=== PATIENT | male | born 1965 | race African-American/Black ===

== ENCOUNTER 2016-08-03 11:02 | Inpatient (IN) | payer OTHER ==
[2016-08-03 12:57] VITALS: BMI 20.3
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
[2016-08-03] MEDS ORDERED: P-EPHED 60MG/TRIPROLIDI 2.5MG TABLET PO PRN (15:49)
[2016-08-03] MEDS ORDERED: MENTHOL/PHENOL 1 EACH UD MM PRN (15:49)
[2016-08-03] MEDS ORDERED: MAGNESIUM CITRATE 300 ML BOTTLE PO PRN (15:49)
[2016-08-03] MEDS ORDERED: NICOTINE 10 MG CARTRIDGE (INHALER) IH PRN (15:49)
[2016-08-03] MEDS ORDERED: hydrOXYzine PAMOATE 25 MG CAPSULE (FP) PO PRN (15:49)
[2016-08-03] MEDS ORDERED: guaiFENesin/D-METHORPHAN HB 10 ML UNIT-DOSE CUPS PO PRN (15:49)
[2016-08-03] MEDS ORDERED: IBUPROFEN 400 MG TABLET (FP) PO PRN (15:49)
[2016-08-03] MEDS ORDERED: MAG HYDROX/AL HYDROX/SIMETH 30 ML UNIT-DOSE CUP PO PRN (15:49)
[2016-08-03] MEDS ORDERED: LOPERAMIDE HCL 2 MG CAPSULE PO PRN (15:49)
[2016-08-03] MEDS ORDERED: MAGNESIUM HYDROX 2400MG/30ML ORAL SUSPENSION 30 ML CUP PO PRN (15:49)
[2016-08-03] MEDS ORDERED: METHADONE HCL 10 MG TABLET (FOR DETOX USE ONLY) PO ONE ×2 (17:00→23:00)
[2016-08-03] MEDS: NICOTINE 21 MG/24 HOURS TOPICAL PATCH TD SCH (17:53)
[2016-08-03] MEDS: diazePAM 5 MG TABLET PO PRN (17:53)
[2016-08-03] MEDS ORDERED: diphenhydrAMINE HCL 50 MG CAPSULE PO PRN (22:00)
[2016-08-03] MEDS: THIAMINE HCL 100 MG TABLET (FP) PO SCH (22:26)
[2016-08-04 00:15] LABS: URINE APPEARANCE CLEAR; URINE BILIRUBIN NEGATIVE (NEGATIVE); URINE COLOR YELLOW; URINE GLUCOSE (UA) NEGATIVE (NEGATIVE); URINE KETONE NEGATIVE (NEGATIVE); URINE LEUK ESTERASE NEGATIVE (NEGATIVE); URINE NITRITE NEGATIVE (NEGATIVE); URINE UROBILINOGEN NEGATIVE E.U./dl (0.2-1.0)
[2016-08-04 01:23] LABS: URINE BLOOD 1+ (NEGATIVE); URINE PROTEIN 1+ (NEGATIVE)
[2016-08-04 01:40] LABS: URINE MUCUS RARE; URINE RBC 5 /hpf (0-3)
[2016-08-04] MEDS: diazePAM 5 MG TABLET PO PRN (05:21)
[2016-08-04] MEDS ORDERED: ALBUTEROL SO4 6.7 GM HFA INHALER IH ONE (07:21)
[2016-08-04] MEDS: ALBUTEROL SO4 6.7 GM HFA INHALER IH PRN ×2 (07:24→19:04)
[2016-08-04] MEDS ORDERED: METHADONE HCL 10 MG TABLET (FOR DETOX USE ONLY) PO ONE (10:00)
[2016-08-04] MEDS: PRENATAL VITAMINS W/ FOLIC ACID TABLET (FP) PO SCH (10:34)
[2016-08-04] MEDS: NICOTINE 21 MG/24 HOURS TOPICAL PATCH TD SCH (10:34)
[2016-08-04 10:39] LABS: MCH 30.4 pg (25.7-33.7); MCHC 33.5 g/dl (32.0-35.9); MEAN CELL VOLUME 90.8 fl (80-96); MEAN PLT VOLUME 8.7 fl (7.5-11.1); PLATELET COUNT 212 K/MM3 (134-434); WHITE BLOOD COUNT 2.8 K/mm3 (4.0-10.0)
[2016-08-04 11:13] LABS: ALK PHOS 71 U/L (45-117); ANION GAP 7 (8-16); BILIRUBIN,TOTAL 0.4 mg/dL (0.2-1.0); CALCIUM 7.9 mg/dL (8.5-10.1); CO2 27 mmol/L (21-32); CREATININE 1.2 mg/dL (0.7-1.3); GLUCOSE,RANDOM 133 mg/dL (74-106); SGOT/AST 38 U/L (15-37); SGPT/ALT 26 U/L (12-78); TOT PROT 7.7 g/dl (6.4-8.2)
--- NOTE | 2016-08-04 15:32 | PN ---
BHS COWS - Scale Resting Pulse: 1= [place] 81-100 Sweatin=Flushed/Facial Moisture Restless Observation: 1= Difficult to Sit Still Pupil Size: 0= Normal to Room Light Bone or Joint Aches: 2= Severe Diffuse Aches Runny Nose/ Eye Tearin= None GI Upset > 30mins: 2= Nausea/Diarrhea Tremor Observation of Outstretched Hands: 2= Slight Tremor Visible Yawning Observation: 1= 1-2x During Session Anxiety or Irritability: 2=Irritable/Anxious Goose Flesh Skin: 3=Piloerection COWS Score: 16 BHS Progress Note (SOAP) Subjective: Stomach Cramping, Tremors, Interrupted sleep, Diarrhea, Body Aches, Sweating. Objective: PT. A & O X 3, OBSERVED AMBULATING ON UNIT. 08/04/16 15:31 Vital Signs Temperature 96.4 F L 08/04/16 13:30 Pulse Rate 99 H 08/04/16 13:30 Respiratory Rate 16 08/04/16 13:30 Blood Pressure 133/84 08/04/16 13:30 O2 Sat by Pulse Oximetry (%) Laboratory Last Values WBC 2.8 K/mm3 (4.0-10.0) L D 08/04/16 06:30 RBC 3.41 M/mm3 (4.00-5.60) L 08/04/16 06:30 Hgb 10.4 GM/dL (11.7-16.9) L 08/04/16 06:30 Hct 30.9 % (35.4-49) L 08/04/16 06:30 MCV 90.8 fl (80-96) 08/04/16 06:30 MCHC 33.5 g/dl (32.0-35.9) 08/04/16 06:30 RDW 14.0 % (11.9-15.9) 08/04/16 06:30 Plt Count 212 K/MM3 (134-434) 08/04/16 06:30 MPV 8.7 fl (7.5-11.1) D 08/04/16 06:30 Sodium 137 mmol/L (136-145) 08/04/16 06:30 Potassium 3.8 mmol/L (3.5-5.1) 08/04/16 06:30 Chloride 103 mmol/L (98-107) 08/04/16 06:30 Carbon Dioxide 27 mmol/L (21-32) D 08/04/16 06:30 Anion Gap 7 (8-16) L 08/04/16 06:30 BUN 11 mg/dL (7-18) D 08/04/16 06:30 Creatinine 1.2 mg/dL (0.7-1.3) D 08/04/16 06:30 Creat Clearance w eGFR > 60 (>60) 08/04/16 06:30 Random Glucose 133 mg/dL (74-106) H 08/04/16 06:30 Calcium 7.9 mg/dL (8.5-10.1) L 08/04/16 06:30 Total Bilirubin 0.4 mg/dL (0.2-1.0) D 08/04/16 06:30 AST 38 U/L (15-37) H D 08/04/16 06:30 ALT 26 U/L (12-78) D 08/04/16 06:30 Alkaline Phosphatase 71 U/L (45-117) 08/04/16 06:30 Total Protein 7.7 g/dl (6.4-8.2) 08/04/16 06:30 Albumin 3.0 g/dl (3.4-5.0) L 08/04/16 06:30 Urine Color Yellow 08/03/16 21:16 Urine Appearance Clear 08/03/16 21:16 Urine pH 6.0 (5.0-8.0) 08/03/16 21:16 Ur Specific [place] 1.020 (1.001-1.035) 08/03/16 21:16 Urine Protein 1+ (NEGATIVE) H 08/03/16 21:16 Urine Glucose (UA) Negative (NEGATIVE) 08/03/16 21:16 Urine Ketones Negative (NEGATIVE) 08/03/16 21:16 Urine Blood 1+ (NEGATIVE) H 08/03/16 21:16 Urine Nitrite Negative (NEGATIVE) 08/03/16 21:16 Urine Bilirubin Negative (NEGATIVE) 08/03/16 21:16 Urine Urobilinogen Negative E.U./dl (0.2-1.0) 08/03/16 21:16 Ur Leukocyte Esterase Negative (NEGATIVE) 08/03/16 21:16 Urine RBC 5 /hpf (0-3) 08/03/16 21:16 Urine WBC None /hpf (3-5) 08/03/16 21:16 Ur Epithelial Cells Rare /hpf (FEW) 08/03/16 21:16 Urine Mucus Rare 08/03/16 21:16 RPR Titer Nonreactive (NONREACTIVE) 08/04/16 06:30 LABS NOTED. Assessment: 08/04/16 15:32 WITHDRAWAL SYMPTOMS. Plan: CONTINUE DETOX. REPEAT CBC TOMORROW. PT. RECEIVING MVI AND THIAMINE SUPPLEMENTATION WHILE UNDERGOING DETOX. ADVISED PATIENT TO FOLLOW-UP WITH [facility] / REHAB MEDICAL PROVIDER AFTER DISCHARGE FROM DETOX FOR GENERAL MEDICAL ASSESSMENT AND FOR ABNORMAL ADMISSION LAB VALUES.
[2016-08-04] MEDS: ACETAMINOPHEN 325 MG TABLET (FP) PO PRN (22:29)
[2016-08-04] MEDS: THIAMINE HCL 100 MG TABLET (FP) PO SCH (22:29)
[2016-08-05] MEDS ORDERED: METHADONE HCL 5 MG TABLET (FOR DETOX USE ONLY) PO ONE (10:00)
[2016-08-05] MEDS: NICOTINE 21 MG/24 HOURS TOPICAL PATCH TD SCH (10:19)
[2016-08-05] MEDS: PRENATAL VITAMINS W/ FOLIC ACID TABLET (FP) PO SCH (10:19)
--- NOTE | 2016-08-05 10:24 | PN ---
S COWS - Scale Resting Pulse: 1= [place] 81-100 Sweatin= Chills/Flushing Restless Observation: 1= Difficult to Sit Still Pupil Size: 1= Pupils >than Normal Bone or Joint Aches: 2= Severe Diffuse Aches Runny Nose/ Eye Tearin= Nasal Congestion GI Upset > 30mins: 2= Nausea/Diarrhea Tremor Observation of Outstretched Hands: 2= Slight Tremor Visible Yawning Observation: 1= 1-2x During Session Anxiety or Irritability: 2=Irritable/Anxious Goose Flesh Skin: 3=Piloerection COWS Score: 17 BHS Progress Note (SOAP) Subjective: nausea, sweats, interrupted sleep, anxiety, pain left thumbnail can not remember injuring it Objective: 08/05/16 10:21 Laboratory Tests 08/03/16 08/04/16 08/04/16 21:16 06:30 06:30 WBC 2.8 L D RBC 3.41 L Hgb 10.4 L Hct 30.9 L MCV 90.8 MCHC 33.5 RDW 14.0 Plt Count 212 MPV 8.7 D Sodium 137 Potassium 3.8 Chloride 103 Carbon Dioxide 27 D Anion Gap 7 L BUN 11 D Creatinine 1.2 D Creat Clearance w eGFR > 60 Random Glucose 133 H Calcium 7.9 L Total Bilirubin 0.4 D AST 38 H D ALT 26 D Alkaline Phosphatase 71 Total Protein 7.7 Albumin 3.0 L Urine Color Yellow Urine Appearance Clear Urine pH 6.0 Ur Specific [place] 1.020 Urine Protein 1+ H Urine Glucose (UA) Negative Urine Ketones Negative Urine Blood 1+ H Urine Nitrite Negative Urine Bilirubin Negative Urine Urobilinogen Negative Ur Leukocyte Esterase Negative Urine RBC 5 Urine WBC None Ur Epithelial Cells Rare Urine Mucus Rare RPR Titer 08/04/16 06:30 WBC RBC Hgb Hct MCV MCHC RDW Plt Count MPV Sodium Potassium Chloride Carbon Dioxide Anion Gap BUN Creatinine Creat Clearance w eGFR Random Glucose Calcium Total Bilirubin AST ALT Alkaline Phosphatase Total Protein Albumin Urine Color Urine Appearance Urine pH Ur Specific [place] Urine Protein Urine Glucose (UA) Urine Ketones Urine Blood Urine Nitrite Urine Bilirubin Urine Urobilinogen Ur Leukocyte Esterase Urine RBC Urine WBC Ur Epithelial Cells Urine Mucus RPR Titer Nonreactive anemia, hypoalbuminemia, abnormal u/a possible infection left thumbnail, no erythyma or pus noted, nail and skin broken Assessment: 08/05/16 10:22 withdraal sx, malnutrition, painful injury thumb with possible infection Plan: cont detox, pain meds, fluids, encourage ambulation, dietary supplements, iron, repeat u/a
[2016-08-05 10:46] LABS: MCH 30.1 pg (25.7-33.7); MCHC 32.9 g/dl (32.0-35.9); MEAN CELL VOLUME 91.7 fl (80-96); MEAN PLT VOLUME 7.8 fl (7.5-11.1); PLATELET COUNT 203 K/MM3 (134-434); RDW 14.4 % (11.9-15.9); WHITE BLOOD COUNT 2.8 K/mm3 (4.0-10.0)
[2016-08-05 11:50] LABS: ANISOCYTOSIS 1+; HYPOCHROMIA 1+; METAMYELOCYTE 2 % (0-2); PLATELET COMMENT2 NO CLOTTING DETECTED; PLATELET ESTIMATE ADEQUATE (NORMAL); SMUDGE CELLS FEW
[2016-08-05] MEDS: FERROUS SO4 300 MG/5 ML ORAL SOLN UNIT DOSE CUPS PO SCH ×2 (12:54→22:37)
[2016-08-05] MEDS: CYCLOBENZAPRINE HCL 10 MG TABLET (FP) PO SCH ×2 (13:12→22:37)
[2016-08-05] MEDS: GABAPENTIN 100 MG CAPSULE (FP) PO SCH ×2 (13:12→22:37)
[2016-08-05 14:01] LABS: URINE APPEARANCE CLEAR; URINE BILIRUBIN NEGATIVE (NEGATIVE); URINE COLOR YELLOW; URINE GLUCOSE (UA) NEGATIVE (NEGATIVE); URINE KETONE NEGATIVE (NEGATIVE); URINE LEUK ESTERASE NEGATIVE (NEGATIVE); URINE NITRITE NEGATIVE (NEGATIVE); URINE UROBILINOGEN NEGATIVE E.U./dl (0.2-1.0)
[2016-08-05 14:03] LABS: URINE BLOOD 1+ (NEGATIVE); URINE PROTEIN 1+ (NEGATIVE)
[2016-08-05 14:16] LABS: URINE MUCUS RARE; URINE RBC 2 /hpf (0-3)
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
[2016-08-05] MEDS: ACETAMINOPHEN 325 MG TABLET (FP) PO PRN (16:53)
[2016-08-05] MEDS: THIAMINE HCL 100 MG TABLET (FP) PO SCH (22:37)
[2016-08-06] MEDS: CYCLOBENZAPRINE HCL 10 MG TABLET (FP) PO SCH ×3 (05:26→22:18)
[2016-08-06] MEDS: GABAPENTIN 100 MG CAPSULE (FP) PO SCH ×3 (05:26→22:18)
[2016-08-06] MEDS: diazePAM 5 MG TABLET PO PRN (05:28)
[2016-08-06] MEDS: ALBUTEROL SO4 6.7 GM HFA INHALER IH PRN (05:30)
[2016-08-06] MEDS: FERROUS SO4 300 MG/5 ML ORAL SOLN UNIT DOSE CUPS PO SCH ×3 (07:35→17:15)
[2016-08-06] MEDS ORDERED: METHADONE HCL 5 MG TABLET (FOR DETOX USE ONLY) PO ONE (10:00)
[2016-08-06] MEDS: ACETAMINOPHEN 325 MG TABLET (FP) PO PRN ×2 (10:17→17:16)
[2016-08-06] MEDS: PRENATAL VITAMINS W/ FOLIC ACID TABLET (FP) PO SCH (10:19)
[2016-08-06] MEDS: NICOTINE 21 MG/24 HOURS TOPICAL PATCH TD SCH (10:19)
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
[2016-08-06] MEDS: THIAMINE HCL 100 MG TABLET (FP) PO SCH (22:18)
[2016-08-07] MEDS: GABAPENTIN 100 MG CAPSULE (FP) PO SCH ×3 (05:36→22:17)
[2016-08-07] MEDS: ALBUTEROL SO4 6.7 GM HFA INHALER IH PRN (05:36)
[2016-08-07] MEDS: CYCLOBENZAPRINE HCL 10 MG TABLET (FP) PO SCH ×3 (05:36→22:17)
[2016-08-07] MEDS: FERROUS SO4 300 MG/5 ML ORAL SOLN UNIT DOSE CUPS PO SCH ×3 (07:41→17:31)
[2016-08-07] MEDS: ACETAMINOPHEN 325 MG TABLET (FP) PO PRN (08:30)
[2016-08-07] MEDS ORDERED: METHADONE HCL 10 MG TABLET (FOR DETOX USE ONLY) PO ONE (10:00)
[2016-08-07] MEDS: NICOTINE 21 MG/24 HOURS TOPICAL PATCH TD SCH (10:17)
[2016-08-07] MEDS: PRENATAL VITAMINS W/ FOLIC ACID TABLET (FP) PO SCH (10:17)
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
[2016-08-07] MEDS: THIAMINE HCL 100 MG TABLET (FP) PO SCH (22:17)
[2016-08-08] MEDS: GABAPENTIN 100 MG CAPSULE (FP) PO SCH (05:04)
[2016-08-08] MEDS: CYCLOBENZAPRINE HCL 10 MG TABLET (FP) PO SCH (05:05)
[2016-08-08] MEDS ORDERED: METHADONE HCL 5 MG TABLET (FOR DETOX USE ONLY) PO ONE (06:00)
[2016-08-08 06:28] VITALS: BP 117/72; PULSE 99; TEMP 100.7
[2016-08-08] MEDS: FERROUS SO4 300 MG/5 ML ORAL SOLN UNIT DOSE CUPS PO SCH (07:11)
--- NOTE | 2016-08-08 08:28 | DS ---
[facility] Detox Discharge Summary Admission Date: 08/03/16 Discharge Date: 08/08/16 - History Present History: Cocaine Dependence, Opioid Dependence Additional Comments: DETOX COMPLETED.ALERT O X 3. NAD. TO F/U WITH PMD/I.D CLINIC FOR MEDICAL MANAGEMENT OF COMORBID CONDITIONS. Pertinent Past History: ANEMIA ASTHMA AIDS HEP C WEIGHT LOSS - Physical Exam Results Vital Signs: Vital Signs Temperature 100.7 F H 08/08/16 06:27 Pulse Rate 99 H 08/08/16 06:27 Respiratory Rate 18 08/08/16 06:27 Blood Pressure 117/72 08/08/16 06:27 O2 Sat by Pulse Oximetry (%) Pertinent Admission Physical Exam Findings: WITHDRAWAL SX - Treatment Hospital Course: Detox Protocol Followed, Detoxed Safely, Responded well, Discharged Condition Good - Medication Discharge Medications: Ambulatory Orders Albuterol Sulfate Inhaler - [Ventolin Hfa Inhaler -] 2 inh PO Q4H PRN 08/03/16 - Diagnosis (1) AIDS (acquired immune deficiency syndrome) Status: Chronic (2) Asthma Status: Chronic Qualifiers: Asthma severity: unspecified severity Asthma complication type: uncomplicated Qualified Code(s): J45.909 - Unspecified asthma, uncomplicated (3) Nicotine dependence Status: Acute Qualifiers: Nicotine product type: cigarettes Substance use status: in withdrawal Qualified Code(s): F17.213 - Nicotine dependence, cigarettes, with withdrawal (4) Opioid dependence with withdrawal Status: Acute (5) Cocaine dependence, uncomplicated Status: Acute (6) Hepatitis C Status: Chronic Qualifiers: Viral hepatitis chronicity: chronic (7) Anemia Status: Acute Qualifiers: Anemia type: unspecified type Qualified Code(s): D64.9 - Anemia, unspecified (8) Weight loss Status: Chronic - AMA Did Patient Leave Against Medical Advice: No
== END 2016-08-08 10:26 | disposition home or self-care (01) | DRG 773 ==
LOC: YASAS 11:02 → Y3N 16:01
PROVIDERS: ADMIT Internal Medicine; ATTEND Internal Medicine
PROC: HZ2ZZZZ Detoxification Services for Substance Abuse Treatment (ICD-10-PCS; principal; 2016-08-08)
DX: F11.23 Opioid dependence with withdrawal (principal); B18.2 Chronic viral hepatitis C; B20 Human immunodeficiency virus [HIV] disease; J45.909 Unspecified asthma, uncomplicated; R63.4 Abnormal weight loss; Z68.20 Body mass index [BMI] 20.0-20.9, adult
CPT/HCPCS: 36415; 70450-TC; 71020-TC; 80053; 81003; 81015; 85025; 85027; 86593; 93005; 93010

== ENCOUNTER 2016-09-12 09:34 | Inpatient (IN) | payer OTHER ==
[2016-09-12 10:48] VITALS: BMI 20.3
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
[2016-09-12] MEDS ORDERED: MAGNESIUM HYDROX 2400MG/30ML ORAL SUSPENSION 30 ML CUP PO PRN (14:06)
[2016-09-12] MEDS ORDERED: LOPERAMIDE HCL 2 MG CAPSULE PO PRN (14:06)
[2016-09-12] MEDS ORDERED: hydrOXYzine PAMOATE 50 MG CAPSULE (FP) PO PRN (14:06)
[2016-09-12] MEDS ORDERED: guaiFENesin/D-METHORPHAN HB 10 ML UNIT-DOSE CUPS PO PRN (14:06)
[2016-09-12] MEDS ORDERED: P-EPHED 60MG/TRIPROLIDI 2.5MG TABLET PO PRN (14:06)
[2016-09-12] MEDS ORDERED: MENTHOL/PHENOL 1 EACH UD MM PRN (14:06)
[2016-09-12] MEDS ORDERED: MAG HYDROX/AL HYDROX/SIMETH 30 ML UNIT-DOSE CUP PO PRN (14:06)
[2016-09-12] MEDS ORDERED: NICOTINE POLACRILEX 4 MG GUM BUC PRN (14:06)
[2016-09-12] MEDS ORDERED: MAGNESIUM CITRATE 300 ML BOTTLE PO PRN (14:06)
[2016-09-12] MEDS ORDERED: ALBUTEROL SO4 6.7 GM HFA INHALER IH PRN (14:08)
[2016-09-12] MEDS ORDERED: METHADONE HCL 10 MG TABLET (FOR DETOX USE ONLY) PO ONE ×2 (15:00→23:00)
[2016-09-12] MEDS: diazePAM 5 MG TABLET PO PRN ×2 (15:20→22:05)
[2016-09-12 18:04] LABS: URINE APPEARANCE CLEAR; URINE BILIRUBIN NEGATIVE (NEGATIVE); URINE COLOR YELLOW; URINE GLUCOSE (UA) NEGATIVE (NEGATIVE); URINE KETONE NEGATIVE (NEGATIVE); URINE LEUK ESTERASE NEGATIVE (NEGATIVE); URINE NITRITE NEGATIVE (NEGATIVE); URINE UROBILINOGEN NEGATIVE E.U./dl (0.2-1.0)
[2016-09-12 18:17] LABS: URINE BLOOD 1+ (NEGATIVE); URINE PROTEIN 1+ (NEGATIVE)
[2016-09-12 18:29] LABS: URINE MUCUS RARE; URINE RBC 7 /hpf (0-3); URINE WBC 2 /hpf (3-5)
[2016-09-12] MEDS: THIAMINE HCL 100 MG TABLET (FP) PO SCH (22:04)
[2016-09-12] MEDS: ACETAMINOPHEN 325 MG TABLET (FP) PO PRN (22:55)
[2016-09-13 09:56] LABS: MEAN CELL VOLUME 90.7 fl (80-96); MEAN PLT VOLUME 8.7 fl (7.5-11.1); PLATELET COUNT 306 K/MM3 (134-434); RDW 14.5 % (11.9-15.9); WHITE BLOOD COUNT 3.2 K/mm3 (4.0-10.0)
[2016-09-13] MEDS ORDERED: METHADONE HCL 10 MG TABLET (FOR DETOX USE ONLY) PO ONE (10:00)
[2016-09-13] MEDS ORDERED: NICOTINE 21 MG/24 HOURS TOPICAL PATCH TD SCH (10:00)
[2016-09-13] MEDS: PRENATAL VITAMINS W/ FOLIC ACID TABLET (FP) PO SCH (10:06)
[2016-09-13] MEDS: diazePAM 5 MG TABLET PO PRN (10:06)
[2016-09-13] MEDS: NICOTINE 21 MG/24 HOURS TOPICAL PATCH TD SCH (10:07)
[2016-09-13 10:31] LABS: ALK PHOS 75 U/L (45-117); ANION GAP 8 (8-16); BILIRUBIN,TOTAL 0.4 mg/dL (0.2-1.0); CALCIUM 8.2 mg/dL (8.5-10.1); CO2 25 mmol/L (21-32); CREATININE 1.2 mg/dL (0.7-1.3); GLUCOSE,RANDOM 99 mg/dL (74-106); SGOT/AST 56 U/L (15-37); SGPT/ALT 30 U/L (12-78); TOT PROT 8.6 g/dl (6.4-8.2)
--- NOTE | 2016-09-13 10:38 | PN ---
BHS COWS - Scale Resting Pulse: 1= [place] 81-100 Sweatin=Flushed/Facial Moisture Restless Observation: 1= Difficult to Sit Still Pupil Size: 0= Normal to Room Light Bone or Joint Aches: 2= Severe Diffuse Aches Runny Nose/ Eye Tearin= Nasal Congestion GI Upset > 30mins: 1= Stomach Cramp Tremor Observation of Outstretched Hands: 2= Slight Tremor Visible Yawning Observation: 2= >3x During Session Anxiety or Irritability: 2=Irritable/Anxious Goose Flesh Skin: 0=Smooth Skin COWS Score: 14 BHS Progress Note (SOAP) Subjective: sweats shakes interrupted sleep anxious Objective: 09/13/16 10:37 Vital Signs Temperature 97.8 F 09/13/16 09:43 Pulse Rate 95 H 09/13/16 09:43 Respiratory Rate 20 09/13/16 09:43 Blood Pressure 112/76 09/13/16 09:43 O2 Sat by Pulse Oximetry (%) Laboratory Tests 09/12/16 09/13/16 09/13/16 17:01 06:00 06:00 WBC 3.2 L RBC 3.44 L Hgb 10.3 L Hct 31.2 L MCV 90.7 MCHC 33.0 RDW 14.5 Plt Count 306 D MPV 8.7 D Sodium 138 Potassium 4.2 Chloride 105 Carbon Dioxide 25 Anion Gap 8 BUN 12 Creatinine 1.2 Creat Clearance w eGFR > 60 Random Glucose 99 D Calcium 8.2 L Total Bilirubin 0.4 AST 56 H D ALT 30 Alkaline Phosphatase 75 Total Protein 8.6 H Albumin 3.0 L Urine Color Yellow Urine Appearance Clear Urine pH 6.0 Ur Specific [place] 1.025 Urine Protein 1+ H Urine Glucose (UA) Negative Urine Ketones Negative Urine Blood 1+ H Urine Nitrite Negative Urine Bilirubin Negative Urine Urobilinogen Negative Ur Leukocyte Esterase Negative Urine RBC 7 Urine WBC 2 Ur Epithelial Cells Rare Urine Mucus Rare awake/alert ambulating no acute distress Assessment: 09/13/16 10:37 withdrawal sx Plan: continue detox increase fluids
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
[2016-09-13] MEDS: THIAMINE HCL 100 MG TABLET (FP) PO SCH (22:26)
[2016-09-13] MEDS: diphenhydrAMINE HCL 50 MG CAPSULE PO PRN (22:26)
[2016-09-14] MEDS: diazePAM 5 MG TABLET PO PRN ×3 (06:15→23:15)
[2016-09-14] MEDS ORDERED: METHADONE HCL 5 MG TABLET (FOR DETOX USE ONLY) PO ONE (10:00)
[2016-09-14] MEDS: PRENATAL VITAMINS W/ FOLIC ACID TABLET (FP) PO SCH (10:53)
[2016-09-14] MEDS: NICOTINE 21 MG/24 HOURS TOPICAL PATCH TD SCH (10:53)
--- NOTE | 2016-09-14 12:19 | PN ---
BHS COWS - Scale Resting Pulse: 2= [place] 101-120 Sweatin=Flushed/Facial Moisture Restless Observation: 1= Difficult to Sit Still Pupil Size: 0= Normal to Room Light Bone or Joint Aches: 2= Severe Diffuse Aches Runny Nose/ Eye Tearin= Runny Nose/Eyes GI Upset > 30mins: 2= Nausea/Diarrhea Tremor Observation of Outstretched Hands: 2= Slight Tremor Visible Yawning Observation: 1= 1-2x During Session Anxiety or Irritability: 2=Irritable/Anxious Goose Flesh Skin: 3=Piloerection COWS Score: 19 BHS Progress Note (SOAP) Subjective: Tremors, Interrupted Sleep, Body Aches, H/A, Sweating. Objective: PT. A & O X 2 (DISORIENTED ABOUT DAY / DATE). PT. NOT REPORTING ANY UNUSUAL URINARY SYMPTOMS (PAIN, FREQUENCY, INCONTINENCE). 09/14/16 12:16 Vital Signs Temperature 99.3 F 09/14/16 10:00 Pulse Rate 105 H 09/14/16 10:00 Respiratory Rate 20 09/14/16 10:00 Blood Pressure 132/79 09/14/16 10:00 O2 Sat by Pulse Oximetry (%) Laboratory Tests 09/12/16 09/13/16 09/13/16 17:01 06:00 06:00 WBC 3.2 L RBC 3.44 L Hgb 10.3 L Hct 31.2 L MCV 90.7 MCHC 33.0 RDW 14.5 Plt Count 306 D MPV 8.7 D Sodium 138 Potassium 4.2 Chloride 105 Carbon Dioxide 25 Anion Gap 8 BUN 12 Creatinine 1.2 Creat Clearance w eGFR > 60 Random Glucose 99 D Calcium 8.2 L Total Bilirubin 0.4 AST 56 H D ALT 30 Alkaline Phosphatase 75 Total Protein 8.6 H Albumin 3.0 L Urine Color Yellow Urine Appearance Clear Urine pH 6.0 Ur Specific [place] 1.025 Urine Protein 1+ H Urine Glucose (UA) Negative Urine Ketones Negative Urine Blood 1+ H Urine Nitrite Negative Urine Bilirubin Negative Urine Urobilinogen Negative Ur Leukocyte Esterase Negative Urine RBC 7 Urine WBC 2 Ur Epithelial Cells Rare Urine Mucus Rare RPR Titer 09/13/16 06:00 WBC RBC Hgb Hct MCV MCHC RDW Plt Count MPV Sodium Potassium Chloride Carbon Dioxide Anion Gap BUN Creatinine Creat Clearance w eGFR Random Glucose Calcium Total Bilirubin AST ALT Alkaline Phosphatase Total Protein Albumin Urine Color Urine Appearance Urine pH Ur Specific [place] Urine Protein Urine Glucose (UA) Urine Ketones Urine Blood Urine Nitrite Urine Bilirubin Urine Urobilinogen Ur Leukocyte Esterase Urine RBC Urine WBC Ur Epithelial Cells Urine Mucus RPR Titer Nonreactive LABS NOTED. 09/14/16 16:25 Assessment: 09/14/16 12:19 WITHDRAWAL SYMPTOMS. Plan: CONTINUE DETOX. FEOSOL, 325 MG BID WITH MEALS FOR LOW CBC VALUES. REPEAT UA FOR ABNORMAL ADMISSION VALUES.
[2016-09-14] MEDS: FERROUS SO4 325 MG TABLET (FP) PO SCH (18:13)
[2016-09-14] MEDS: diphenhydrAMINE HCL 50 MG CAPSULE PO PRN (23:15)
[2016-09-14] MEDS: THIAMINE HCL 100 MG TABLET (FP) PO SCH (23:15)
[2016-09-14] MEDS: IBUPROFEN 400 MG TABLET (FP) PO PRN (23:16)
[2016-09-15] MEDS: FERROUS SO4 325 MG TABLET (FP) PO SCH ×2 (07:42→18:00)
[2016-09-15] MEDS ORDERED: METHADONE HCL 5 MG TABLET (FOR DETOX USE ONLY) PO ONE (10:00)
[2016-09-15] MEDS: PRENATAL VITAMINS W/ FOLIC ACID TABLET (FP) PO SCH (11:07)
[2016-09-15] MEDS: NICOTINE 21 MG/24 HOURS TOPICAL PATCH TD SCH (11:08)
[2016-09-15] MEDS: diazePAM 5 MG TABLET PO PRN (11:08)
[2016-09-15] MEDS: ONDANSETRON *ODT* 4 MG TABLET SL PRN (12:08)
--- NOTE | 2016-09-15 19:05 | PN ---
BHS Progress Note (SOAP) Subjective: Tremors, Body Aches, Sweating, Interrupted sleep, H/A, Stomach cramping, Nausea , Diarrhea. Objective: PT. A & O X 2 (DISORIENTED ABOUT DAY / DATE). PT. OBSERVED AMBULATING ON UNIT. 09/15/16 19:03 Vital Signs Temperature 100.0 F H 09/15/16 18:29 Pulse Rate 104 H 09/15/16 18:29 Respiratory Rate 20 09/15/16 18:29 Blood Pressure 122/72 09/15/16 18:29 O2 Sat by Pulse Oximetry (%) Laboratory Tests 09/12/16 09/13/16 09/13/16 17:01 06:00 06:00 WBC 3.2 L RBC 3.44 L Hgb 10.3 L Hct 31.2 L MCV 90.7 MCHC 33.0 RDW 14.5 Plt Count 306 D MPV 8.7 D Sodium 138 Potassium 4.2 Chloride 105 Carbon Dioxide 25 Anion Gap 8 BUN 12 Creatinine 1.2 Creat Clearance w eGFR > 60 Random Glucose 99 D Calcium 8.2 L Total Bilirubin 0.4 AST 56 H D ALT 30 Alkaline Phosphatase 75 Total Protein 8.6 H Albumin 3.0 L Urine Color Yellow Urine Appearance Clear Urine pH 6.0 Ur Specific [place] 1.025 Urine Protein 1+ H Urine Glucose (UA) Negative Urine Ketones Negative Urine Blood 1+ H Urine Nitrite Negative Urine Bilirubin Negative Urine Urobilinogen Negative Ur Leukocyte Esterase Negative Urine RBC 7 Urine WBC 2 Ur Epithelial Cells Rare Urine Mucus Rare RPR Titer 09/13/16 06:00 WBC RBC Hgb Hct MCV MCHC RDW Plt Count MPV Sodium Potassium Chloride Carbon Dioxide Anion Gap BUN Creatinine Creat Clearance w eGFR Random Glucose Calcium Total Bilirubin AST ALT Alkaline Phosphatase Total Protein Albumin Urine Color Urine Appearance Urine pH Ur Specific [place] Urine Protein Urine Glucose (UA) Urine Ketones Urine Blood Urine Nitrite Urine Bilirubin Urine Urobilinogen Ur Leukocyte Esterase Urine RBC Urine WBC Ur Epithelial Cells Urine Mucus RPR Titer Nonreactive LABS NOTED. Assessment: 09/15/16 19:03 WITHDRAWAL SYMPTOMS. Plan: CONTINUE DETOX. PRN OFRAN SL FOR VOMITING. PRN IMMODIUM PO FOR DIARRHEA. ADVISED PT. TO FOLLOW-UP WITH [facility] AFTER DISCHARGE FROM DETOX FOR GENERAL MEDICAL ASSESSMENT AND FOR LOW ADMISSION CBC VALUES (WBC, HGB, HCT, RBC).
[2016-09-15] MEDS: THIAMINE HCL 100 MG TABLET (FP) PO SCH (23:09)
[2016-09-16] MEDS: ACETAMINOPHEN 325 MG TABLET (FP) PO PRN ×2 (07:22→15:09)
[2016-09-16] MEDS: FERROUS SO4 325 MG TABLET (FP) PO SCH ×2 (07:22→19:00)
[2016-09-16] MEDS ORDERED: METHADONE HCL 10 MG TABLET (FOR DETOX USE ONLY) PO ONE (10:00)
[2016-09-16] MEDS: PRENATAL VITAMINS W/ FOLIC ACID TABLET (FP) PO SCH (11:00)
[2016-09-16] MEDS: NICOTINE 21 MG/24 HOURS TOPICAL PATCH TD SCH (11:01)
[2016-09-16] MEDS: IBUPROFEN 400 MG TABLET (FP) PO PRN (11:01)
[2016-09-16] MEDS: ONDANSETRON *ODT* 4 MG TABLET SL PRN (11:01)
--- NOTE | 2016-09-16 14:16 | PN ---
BHS Progress Note (SOAP) Subjective: Sweating,interrupted sleep,restless. Objective: 09/16/16 14:14 Vital Signs - 8 hr 09/16/16 09/16/16 09/16/16 06:52 11:11 13:40 Temperature 101.7 F H 101.5 F H 99.5 F Pulse Rate 99 H 101 H 98 H Respiratory 16 20 18 Rate Blood Pressure 125/81 94/56 123/68 Laboratory Last Values WBC 3.2 K/mm3 (4.0-10.0) L 09/13/16 06:00 RBC 3.44 M/mm3 (4.00-5.60) L 09/13/16 06:00 Hgb 10.3 GM/dL (11.7-16.9) L 09/13/16 06:00 Hct 31.2 % (35.4-49) L 09/13/16 06:00 MCV 90.7 fl (80-96) 09/13/16 06:00 MCHC 33.0 g/dl (32.0-35.9) 09/13/16 06:00 RDW 14.5 % (11.9-15.9) 09/13/16 06:00 Plt Count 306 K/MM3 (134-434) D 09/13/16 06:00 MPV 8.7 fl (7.5-11.1) D 09/13/16 06:00 Sodium 138 mmol/L (136-145) 09/13/16 06:00 Potassium 4.2 mmol/L (3.5-5.1) 09/13/16 06:00 Chloride 105 mmol/L (98-107) 09/13/16 06:00 Carbon Dioxide 25 mmol/L (21-32) 09/13/16 06:00 Anion Gap 8 (8-16) 09/13/16 06:00 BUN 12 mg/dL (7-18) 09/13/16 06:00 Creatinine 1.2 mg/dL (0.7-1.3) 09/13/16 06:00 Creat Clearance w eGFR > 60 (>60) 09/13/16 06:00 Random Glucose 99 mg/dL (74-106) D 09/13/16 06:00 Calcium 8.2 mg/dL (8.5-10.1) L 09/13/16 06:00 Total Bilirubin 0.4 mg/dL (0.2-1.0) 09/13/16 06:00 AST 56 U/L (15-37) H D 09/13/16 06:00 ALT 30 U/L (12-78) 09/13/16 06:00 Alkaline Phosphatase 75 U/L (45-117) 09/13/16 06:00 Total Protein 8.6 g/dl (6.4-8.2) H 09/13/16 06:00 Albumin 3.0 g/dl (3.4-5.0) L 09/13/16 06:00 Urine Color Yellow 09/12/16 17:01 Urine Appearance Clear 09/12/16 17:01 Urine pH 6.0 (5.0-8.0) 09/12/16 17:01 Ur Specific [place] 1.025 (1.005-1.025) 09/12/16 17:01 Urine Protein 1+ (NEGATIVE) H 09/12/16 17:01 Urine Glucose (UA) Negative (NEGATIVE) 09/12/16 17:01 Urine Ketones Negative (NEGATIVE) 09/12/16 17:01 Urine Blood 1+ (NEGATIVE) H 09/12/16 17:01 Urine Nitrite Negative (NEGATIVE) 09/12/16 17:01 Urine Bilirubin Negative (NEGATIVE) 09/12/16 17:01 Urine Urobilinogen Negative E.U./dl (0.2-1.0) 09/12/16 17:01 Ur Leukocyte Esterase Negative (NEGATIVE) 09/12/16 17:01 Urine RBC 7 /hpf (0-3) 09/12/16 17:01 Urine WBC 2 /hpf (3-5) 09/12/16 17:01 Ur Epithelial Cells Rare /hpf (FEW) 09/12/16 17:01 Urine Mucus Rare 09/12/16 17:01 RPR Titer Nonreactive (NONREACTIVE) 09/13/16 06:00 labs noted Assessment: 09/16/16 14:15 withdrawal sx. Plan: Continue detox
[2016-09-16] MEDS ORDERED: FLUCONAZOLE 100 MG TABLET (UD) PO ONE (15:20)
[2016-09-16] MEDS ORDERED: ONDANSETRON *ODT* 4 MG TABLET SL PRN (15:22)
[2016-09-16] MEDS ORDERED: NAPROXEN 375 MG TABLET (FP) PO ONE (15:23)
--- NOTE | 2016-09-16 15:30 | PN ---
BHS Progress Note Note: pt. spiked temp last night & earlier this AM. He has hx. of oral thrush in the past. Vital Signs - 8 hr 09/16/16 09/16/16 11:11 13:40 Temperature 101.5 F H 99.5 F Pulse Rate 101 H 98 H Respiratory 20 18 Rate Blood Pressure 94/56 123/68 Throat : Whitish lesion on uvula Lungs : scattered rhonchi Heart : RR, no murmur Dx. : Probable oral thrush Incipient Bronchitis P : Levaquin 500mg/d Mycelex & Diflucan
[2016-09-16] MEDS: LEVOFLOXACIN 500 MG TABLET (FP) PO SCH (16:16)
[2016-09-16] MEDS: CLOTRIMAZOLE 10 MG TROCHE (FP) PO SCH ×2 (19:00→22:25)
[2016-09-16] MEDS: diphenhydrAMINE HCL 50 MG CAPSULE PO PRN (22:25)
[2016-09-16] MEDS: THIAMINE HCL 100 MG TABLET (FP) PO SCH (22:25)
[2016-09-16] MEDS: NAPROXEN 375 MG TABLET (FP) PO SCH (22:26)
[2016-09-17] MEDS ORDERED: METHADONE HCL 5 MG TABLET (FOR DETOX USE ONLY) PO ONE (06:00)
[2016-09-17] MEDS: LEVOFLOXACIN 500 MG TABLET (FP) PO SCH (06:19)
[2016-09-17] MEDS: CLOTRIMAZOLE 10 MG TROCHE (FP) PO SCH ×2 (07:10→10:40)
[2016-09-17] MEDS: FERROUS SO4 325 MG TABLET (FP) PO SCH (08:22)
[2016-09-17] MEDS ORDERED: FLUCONAZOLE 100 MG TABLET (UD) PO SCH (10:00)
[2016-09-17 10:12] VITALS: BP 129/90; PULSE 99; TEMP 98.1
[2016-09-17] MEDS: NICOTINE 21 MG/24 HOURS TOPICAL PATCH TD SCH (10:40)
[2016-09-17] MEDS: PRENATAL VITAMINS W/ FOLIC ACID TABLET (FP) PO SCH (10:40)
[2016-09-17] MEDS: NAPROXEN 375 MG TABLET (FP) PO SCH (10:41)
--- NOTE | 2016-09-17 14:10 | DS ---
[facility] Detox Discharge Summary Admission Date: 09/12/16 Discharge Date: 09/17/16 - History Present History: Cocaine Dependence, Opioid Dependence Additional Comments: ADVISED PATIENT TO FOLLOW-UP WITH [facility] / REHAB MEDICAL PROVIDER AFTER DISCHARGE FROM DETOX FOR GENERAL MEDICAL ASSESSMENT. Pertinent Past History: Asthma, HIV / AIDS. - Physical Exam Results Vital Signs: Vital Signs Temperature 98.1 F 09/17/16 10:11 Pulse Rate 99 H 09/17/16 10:11 Respiratory Rate 18 09/17/16 10:11 Blood Pressure 129/90 09/17/16 10:11 O2 Sat by Pulse Oximetry (%) Pertinent Admission Physical Exam Findings: WITHDRAWAL SYMPTOMS. Laboratory Tests 09/12/16 09/13/16 09/13/16 17:01 06:00 06:00 WBC 3.2 L RBC 3.44 L Hgb 10.3 L Hct 31.2 L MCV 90.7 MCHC 33.0 RDW 14.5 Plt Count 306 D MPV 8.7 D Sodium 138 Potassium 4.2 Chloride 105 Carbon Dioxide 25 Anion Gap 8 BUN 12 Creatinine 1.2 Creat Clearance w eGFR > 60 Random Glucose 99 D Calcium 8.2 L Total Bilirubin 0.4 AST 56 H D ALT 30 Alkaline Phosphatase 75 Total Protein 8.6 H Albumin 3.0 L Urine Color Yellow Urine Appearance Clear Urine pH 6.0 Ur Specific [place] 1.025 Urine Protein 1+ H Urine Glucose (UA) Negative Urine Ketones Negative Urine Blood 1+ H Urine Nitrite Negative Urine Bilirubin Negative Urine Urobilinogen Negative Ur Leukocyte Esterase Negative Urine RBC 7 Urine WBC 2 Ur Epithelial Cells Rare Urine Mucus Rare RPR Titer 09/13/16 06:00 WBC RBC Hgb Hct MCV MCHC RDW Plt Count MPV Sodium Potassium Chloride Carbon Dioxide Anion Gap BUN Creatinine Creat Clearance w eGFR Random Glucose Calcium Total Bilirubin AST ALT Alkaline Phosphatase Total Protein Albumin Urine Color Urine Appearance Urine pH Ur Specific [place] Urine Protein Urine Glucose (UA) Urine Ketones Urine Blood Urine Nitrite Urine Bilirubin Urine Urobilinogen Ur Leukocyte Esterase Urine RBC Urine WBC Ur Epithelial Cells Urine Mucus RPR Titer Nonreactive LABS NOTED. - Treatment Hospital Course: Detox Protocol Followed, Detoxed Safely, Responded well, Discharged Condition Good, Rehab Referral Accepted Patient has Accepted a Rehab Referral to: YES - [facility]. - Medication Discharge Medications: Ambulatory Orders Albuterol Sulfate Inhaler - [Ventolin Hfa Inhaler -] 2 inh PO Q4H PRN 08/03/16 - Diagnosis (1) AIDS (acquired immune deficiency syndrome) Status: Chronic (2) Asthma Status: Chronic Qualifiers: Asthma severity: mild intermittent Asthma complication type: uncomplicated Qualified Code(s): J45.20 - Mild intermittent asthma, uncomplicated (3) Cocaine dependence, uncomplicated Status: Acute (4) Nicotine dependence Status: Chronic Qualifiers: Nicotine product type: cigarettes Substance use status: uncomplicated Qualified Code(s): F17.210 - Nicotine dependence, cigarettes, uncomplicated (5) Opioid dependence with withdrawal Status: Acute (6) Weight loss Status: Chronic - AMA Did Patient Leave Against Medical Advice: No
== END 2016-09-17 12:47 | disposition other institution (70) | DRG 773 ==
LOC: YASAS 09:34 → Y6N 13:32
PROVIDERS: ADMIT Internal Medicine Addiction Medicine; ATTEND Internal Medicine Addiction Medicine
PROC: HZ2ZZZZ Detoxification Services for Substance Abuse Treatment (ICD-10-PCS; principal; 2016-09-12)
DX: F11.23 Opioid dependence with withdrawal (principal); F14.20 Cocaine dependence, uncomplicated; F17.210 Nicotine dependence, cigarettes, uncomplicated; B20 Human immunodeficiency virus [HIV] disease; J45.20 Mild intermittent asthma, uncomplicated; J40 Bronchitis, not specified as acute or chronic; Z87.898 Personal history of other specified conditions
CPT/HCPCS: 36415; 80053; 81003; 81015; 85027; 86593; 93005; 93010

== ENCOUNTER 2016-09-17 12:52 | Inpatient (IN) | payer OTHER ==
[2016-09-17] MEDS ORDERED: guaiFENesin/D-METHORPHAN HB 10 ML UNIT-DOSE CUPS PO PRN (14:57)
[2016-09-17] MEDS ORDERED: ACETAMINOPHEN 325 MG TABLET (FP) PO PRN (14:57)
[2016-09-17] MEDS ORDERED: MENTHOL/PHENOL 1 EACH UD MM PRN (14:57)
[2016-09-17] MEDS ORDERED: MAG HYDROX/AL HYDROX/SIMETH 30 ML UNIT-DOSE CUP PO PRN (14:57)
[2016-09-17] MEDS ORDERED: LOPERAMIDE HCL 2 MG CAPSULE PO PRN (14:57)
[2016-09-17] MEDS ORDERED: P-EPHED 60MG/TRIPROLIDI 2.5MG TABLET PO PRN (14:57)
[2016-09-17] MEDS ORDERED: NICOTINE POLACRILEX 2 MG GUM BUC PRN (14:57)
[2016-09-17] MEDS ORDERED: MAGNESIUM HYDROX 2400MG/30ML ORAL SUSPENSION 30 ML CUP PO PRN (14:57)
[2016-09-17] MEDS ORDERED: MAGNESIUM CITRATE 300 ML BOTTLE PO PRN (14:57)
[2016-09-17] MEDS ORDERED: ALBUTEROL SO4 6.7 GM HFA INHALER IH PRN (14:58)
--- NOTE | 2016-09-17 15:01 | HP ---
[facility] Rehab Assess/Revision - Admission History Admitted to Rehab from: [facility] [place] Date of Admission to Rehab: 09/17/16 - Vital signs Vital Signs: Vital Signs Period Temp Pulse Resp BP Sys/Sommer Pulse Ox Last 24 Hr 98.0 F 97 105/68 - Findings Detox History & Physical reviewed: Yes Concur with findings: Yes
[2016-09-17] MEDS: CLOTRIMAZOLE 10 MG TROCHE (FP) PO SCH ×2 (17:57→21:24)
[2016-09-17] MEDS: THIAMINE HCL 100 MG TABLET (FP) PO SCH (21:23)
[2016-09-17] MEDS: diphenhydrAMINE HCL 50 MG CAPSULE PO PRN (21:23)
[2016-09-18] MEDS: LEVOFLOXACIN 500 MG TABLET (FP) PO SCH (06:21)
[2016-09-18] MEDS: CLOTRIMAZOLE 10 MG TROCHE (FP) PO SCH ×2 (06:21→09:47)
[2016-09-18] MEDS: PRENATAL VITAMINS W/ FOLIC ACID TABLET (FP) PO SCH (09:46)
[2016-09-18] MEDS: FLUCONAZOLE 100 MG TABLET (UD) PO SCH (09:46)
[2016-09-18] MEDS: NICOTINE 14 MG/24 HOURS TOPICAL PATCH TD SCH (09:46)
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
[2016-09-18] MEDS: THIAMINE HCL 100 MG TABLET (FP) PO SCH (21:18)
[2016-09-18] MEDS: diphenhydrAMINE HCL 50 MG CAPSULE PO PRN (21:18)
[2016-09-19] MEDS: LEVOFLOXACIN 500 MG TABLET (FP) PO SCH (06:18)
[2016-09-19] MEDS: NICOTINE 14 MG/24 HOURS TOPICAL PATCH TD SCH (09:54)
[2016-09-19] MEDS: PRENATAL VITAMINS W/ FOLIC ACID TABLET (FP) PO SCH (09:54)
[2016-09-19] MEDS: FLUCONAZOLE 100 MG TABLET (UD) PO SCH (09:54)
[2016-09-19] MEDS: THIAMINE HCL 100 MG TABLET (FP) PO SCH (21:11)
[2016-09-19] MEDS: diphenhydrAMINE HCL 50 MG CAPSULE PO PRN (21:11)
[2016-09-20] MEDS: LEVOFLOXACIN 500 MG TABLET (FP) PO SCH (06:32)
[2016-09-20] MEDS: NICOTINE 14 MG/24 HOURS TOPICAL PATCH TD SCH (09:42)
[2016-09-20] MEDS: FLUCONAZOLE 100 MG TABLET (UD) PO SCH (09:42)
[2016-09-20] MEDS: PRENATAL VITAMINS W/ FOLIC ACID TABLET (FP) PO SCH (09:42)
[2016-09-20] MEDS: THIAMINE HCL 100 MG TABLET (FP) PO SCH (21:12)
[2016-09-20] MEDS: diphenhydrAMINE HCL 50 MG CAPSULE PO PRN (21:12)
[2016-09-21] MEDS: LEVOFLOXACIN 500 MG TABLET (FP) PO SCH (06:10)
[2016-09-21] MEDS: PRENATAL VITAMINS W/ FOLIC ACID TABLET (FP) PO SCH (09:40)
[2016-09-21] MEDS: FLUCONAZOLE 100 MG TABLET (UD) PO SCH (09:40)
[2016-09-21] MEDS: IBUPROFEN 400 MG TABLET (FP) PO PRN ×2 (09:41→19:43)
[2016-09-21] MEDS: NICOTINE 14 MG/24 HOURS TOPICAL PATCH TD SCH (09:41)
--- NOTE | 2016-09-21 11:34 | PN ---
BHS Progress Note Note: PAIN IN THE RIGHT EAR,EAR WAX RIGHT,DEBROX EAR DROP
[2016-09-21] MEDS: CARBAMIDE PEROXIDE 6.5% OTIC 15 ML BOTTLE AD SCH ×2 (14:24→21:13)
[2016-09-21] MEDS: THIAMINE HCL 100 MG TABLET (FP) PO SCH (21:12)
[2016-09-21] MEDS: diphenhydrAMINE HCL 50 MG CAPSULE PO PRN (21:12)
[2016-09-22] MEDS: LEVOFLOXACIN 500 MG TABLET (FP) PO SCH (06:05)
[2016-09-22] MEDS: FLUCONAZOLE 100 MG TABLET (UD) PO SCH (09:38)
[2016-09-22] MEDS: CARBAMIDE PEROXIDE 6.5% OTIC 15 ML BOTTLE AD SCH ×2 (09:38→21:13)
[2016-09-22] MEDS: NICOTINE 14 MG/24 HOURS TOPICAL PATCH TD SCH (09:38)
[2016-09-22] MEDS: PRENATAL VITAMINS W/ FOLIC ACID TABLET (FP) PO SCH (09:38)
[2016-09-22] MEDS: diphenhydrAMINE HCL 50 MG CAPSULE PO PRN (21:13)
[2016-09-22] MEDS: THIAMINE HCL 100 MG TABLET (FP) PO SCH (21:14)
[2016-09-23] MEDS: CARBAMIDE PEROXIDE 6.5% OTIC 15 ML BOTTLE AD SCH ×2 (09:46→21:13)
[2016-09-23] MEDS: PRENATAL VITAMINS W/ FOLIC ACID TABLET (FP) PO SCH (09:47)
[2016-09-23] MEDS: FLUCONAZOLE 100 MG TABLET (UD) PO SCH (09:47)
[2016-09-23] MEDS: NICOTINE 14 MG/24 HOURS TOPICAL PATCH TD SCH (09:47)
[2016-09-23] MEDS: THIAMINE HCL 100 MG TABLET (FP) PO SCH (21:13)
[2016-09-23] MEDS: diphenhydrAMINE HCL 50 MG CAPSULE PO PRN (21:13)
[2016-09-24] MEDS: PRENATAL VITAMINS W/ FOLIC ACID TABLET (FP) PO SCH (09:46)
[2016-09-24] MEDS: FLUCONAZOLE 100 MG TABLET (UD) PO SCH (09:46)
[2016-09-24] MEDS: NICOTINE 14 MG/24 HOURS TOPICAL PATCH TD SCH (09:46)
[2016-09-24] MEDS: CARBAMIDE PEROXIDE 6.5% OTIC 15 ML BOTTLE AD SCH ×2 (09:47→21:08)
[2016-09-24] MEDS: IBUPROFEN 400 MG TABLET (FP) PO PRN ×2 (15:43→22:18)
[2016-09-24] MEDS: diphenhydrAMINE HCL 50 MG CAPSULE PO PRN (21:08)
[2016-09-24] MEDS: THIAMINE HCL 100 MG TABLET (FP) PO SCH (21:08)
[2016-09-25] MEDS: PRENATAL VITAMINS W/ FOLIC ACID TABLET (FP) PO SCH (09:37)
[2016-09-25] MEDS: CARBAMIDE PEROXIDE 6.5% OTIC 15 ML BOTTLE AD SCH ×2 (09:37→21:09)
[2016-09-25] MEDS: FLUCONAZOLE 100 MG TABLET (UD) PO SCH (09:37)
[2016-09-25] MEDS: NICOTINE 14 MG/24 HOURS TOPICAL PATCH TD SCH (09:38)
[2016-09-25] MEDS: IBUPROFEN 400 MG TABLET (FP) PO PRN (16:37)
[2016-09-25] MEDS: diphenhydrAMINE HCL 50 MG CAPSULE PO PRN (21:09)
[2016-09-25] MEDS: THIAMINE HCL 100 MG TABLET (FP) PO SCH (21:09)
[2016-09-26 06:32] VITALS: BP 123/84; PULSE 95; TEMP 98.6
[2016-09-26] MEDS: CARBAMIDE PEROXIDE 6.5% OTIC 15 ML BOTTLE AD SCH (10:04)
[2016-09-26] MEDS: NICOTINE 14 MG/24 HOURS TOPICAL PATCH TD SCH (10:04)
[2016-09-26] MEDS: PRENATAL VITAMINS W/ FOLIC ACID TABLET (FP) PO SCH (10:04)
--- NOTE | 2016-09-26 10:33 | PN ---
Psychiatric Progress Note Vital Signs: Vital Signs Period Temp Pulse Resp BP Sys/Sommer Pulse Ox Last 24 Hr 98.6 F 95 16-16 123/84 Date of Session: 09/26/16 Chief Complaint:: discharge visit HPI: Patient has addressed cocaine, nicotine dependence. ROS: asthma , HIV medically managed. Current Medications: Active Medications Generic Name Dose Route Start Last Admin Trade Name Freq PRN Reason Stop Dose Admin Acetaminophen 650 mg 09/17/16 14:57 Tylenol - PO Q4H PRN FEVER OR PAIN Al Hydroxide/Mg Hydroxide 30 ml 09/17/16 14:57 09/25/16 18:22 Mylanta Oral Suspension - PO 30 ml Q6H PRN Administration DYSPEPSIA Albuterol Sulfate 2 puff 09/17/16 14:58 09/25/16 18:57 Ventolin Hfa Inhaler - IH 2 puff Q4H PRN Administration ASTHMA Carbamide Perox/Anhydrous Glycerin 5 drop 09/21/16 12:00 09/25/16 21:09 Debrox - AD 5 drop BID TERRANCE Administration Diphenhydramine HCl 50 mg 09/17/16 14:57 09/25/16 21:09 Benadryl - PO 50 mg HSMR1 PRN Administration FOR ITCHING Eucalyptus/Menthol/Phenol/Sorbitol 1 each 09/17/16 14:57 Cepastat Lozenge - MM Q4H PRN SORE THROAT Guaifenesin 10 ml 09/17/16 14:57 09/18/16 06:23 Robitussin Dm - PO 10 ml Q6H PRN Administration COUGH Ibuprofen 400 mg 09/17/16 14:57 09/25/16 16:37 Motrin - PO 400 mg Q6H PRN Administration PAIN Loperamide HCl 4 mg 09/17/16 14:57 Imodium - PO Q6H PRN DIARRHEA Magnesium Hydroxide 30 ml 09/17/16 14:57 Milk Of Magnesia - PO DAILY PRN CONSTIPATION Nicotine 14 mg 09/18/16 10:00 09/25/16 09:38 Nicoderm Patch - TD Not Given DAILY TERRANCE Nicotine Polacrilex 2 mg 09/17/16 14:57 Nicorette Gum - BUC Q2H PRN NICOTINE REPLACEMENT RX Multivit/Folic Acid/Iron 1 tab 09/18/16 10:00 09/25/16 09:37 Vitamins ([facility]) - PO 1 tab DAILY TERRANCE Administration Pseudoephedrine/Triprolidine 1 combo 09/17/16 14:57 Actifed - PO TID PRN NASAL CONGESTION Thiamine HCl 100 mg 09/17/16 22:00 09/25/16 21:09 Vitamin B1 - PO 100 mg HS TERRANCE Administration Current Side Effect: No Lab tests ordered: No Lab tests reviewed: Yes Provider note:: Patient has completed treatment and met his goals, will continue to address his issues at [facility] step program. Patient gained insights into importance continue abstinence and utilize all supports to prevent relapses. Patient is stable for discharge. Total face to face time:: 15 Mental Status Exam - Mental Status Exam Alert and Oriented to: Time, Place, Person Cognitive Function: Grossly Intact Patient Appearance: Well Groomed Mood: Hopeful Affect: Appropriate, Mood Congruent Patient Behavior: Appropriate, Cooperative Speech Pattern: Clear, Appropriate Voice Loudness: Normal Thought Process: Intact, Goal Oriented Thought Disorder: Not Present Hallucinations: Denies Suicidal Ideation: Denies Homicidal Ideation: Denies Insight/Judgement: Fair Sleep: Fair Appetite: Fair Muscle strength/Tone: Normal Gait/Station: Normal Psychiatric Treatment Plan - Problem List (1) Asthma Current Visit: No Qualifiers: Asthma severity: mild intermittent Asthma complication type: uncomplicated Qualified Code(s): J45.20 - Mild intermittent asthma, uncomplicated (2) Nicotine dependence Current Visit: No Qualifiers: Nicotine product type: cigarettes Substance use status: uncomplicated Qualified Code(s): F17.210 - Nicotine dependence, cigarettes, uncomplicated (3) Cocaine dependence Current Visit: Yes (4) Opioid dependence Current Visit: Yes
== END 2016-09-26 10:45 | disposition home or self-care (01) | DRG 772 ==
LOC: YASAS 12:52 → Y5N 12:53
PROVIDERS: ADMIT Psychiatry & Neurology Psychiatry; ATTEND Psychiatry & Neurology Psychiatry
PROC: HZ42ZZZ Group Counseling for Substance Abuse Treatment, Cognitive-Behavioral (ICD-10-PCS; principal; 2016-09-26)
DX: F11.20 Opioid dependence, uncomplicated (principal); F17.210 Nicotine dependence, cigarettes, uncomplicated; J45.20 Mild intermittent asthma, uncomplicated